=== PATIENT | female | born 1945 | race Caucasian/White ===

== ENCOUNTER 2019-08-15 20:09 | Inpatient (IN) | payer MEDICARE ==
[~2019-08-15] VITALS: Ht 157.5 cm; Wt 63.0 kg
--- NOTE | 2019-08-15 20:24 | NUR ---
PATIENT IN BED A & O X4. FALL PRECAUTION INITIATED.
--- NOTE | 2019-08-15 20:27 | NUR ---
SR RISK MANAGEMENT CONSULTANT WAS CALLED NO AVAILABLE 1:1 SITTER AT THIS TIME. OK TO USE SECURITY
--- NOTE | 2019-08-15 20:37 | NUR ---
REJI SENIOR PLANNER 1:1 AT BEDSIDE FOR PATIENT SAFETY. PATIENT IN BED NO S/S ANY DISTRESS. WILL CONTINUE TO MONITOR.
[2019-08-15 20:48] LABS: CARBON DIOXIDE 28 mmol/L (21-32); CHLORIDE 101 mmol/L (98-107); CREATININE 1.3 mg/dL (0.6-1.3); GLUCOSE 105 mg/dL (74-106); POTASSIUM 3.8 mmol/L (3.5-5.1); UREA NITROGEN, BLOOD 29 mg/dL (7-18)
--- NOTE | 2019-08-15 20:48 | NUR ---
ALICIA ASSISTED LIVING MANAGER 1:1 SITTER AT BEDSIDE
[2019-08-15 20:49] LABS: ETHANOL < 3 MG/DL (0-0)
[2019-08-15] MEDS ORDERED: OMEP20TA20 PO (20:49)
[2019-08-15] MEDS ORDERED: PREG100C GT (20:49)
[2019-08-15] MEDS ORDERED: LISI10TA5 PO (20:49)
[2019-08-15] MEDS ORDERED: LEVO50TA PO (20:49)
[2019-08-15] MEDS ORDERED: PREG50CA PO (20:49)
--- NOTE | 2019-08-15 20:50 | NUR ---
PATIENT IN BED. NOT IN ANY DISTRESS.
[2019-08-15 20:54] LABS: ACETAMINOPHEN < 2.0 ug/mL (10-30); ALANINE AMINOTRANSFERASE 23 U/L (14-59); ALKALINE PHOSPHATASE 80 U/L (50-136); ASPARTATE AMINOTRANSFERASE 24 U/L (15-37); BILIRUBIN,DIRECT 0.1 mg/dL (0.0-0.2); BILIRUBIN,TOTAL 0.4 mg/dL (0.2-1.0); TOTAL PROTEIN, SERUM 7.4 g/dL (6.4-8.2)
--- NOTE | 2019-08-15 21:00 | NUR ---
PATIENT IS MEDICALLY CLEARED BY DR BRYAN.
--- NOTE | 2019-08-15 21:05 | NUR ---
PATIENT IN ROOM ON THE BED. NOT IN ANY DISTRESS.
--- NOTE | 2019-08-15 21:18 | NUR ---
Pt. admitted to [facility] , under care of Dr. LINDER Belongs List completed
[2019-08-15] MEDS ORDERED: MAGNESIUM HYDROXIDE 30 ML LIQUID UDC PO PRN (21:30)
[2019-08-15] MEDS ORDERED: BLOOD SUGAR DIAGNOSTIC 1 EACH STRIP VI ONE (21:30)
[2019-08-15 22:00] VITALS: BP 113/70
[2019-08-15] MEDS: TEMAZEPAM 7.5 MG CAPSULE PO PRN (23:00)
[2019-08-15] MEDS: ACETAMINOPHEN 325 MG TABLET PO PRN (23:40)
--- NOTE | 2019-08-16 01:55 | NUR ---
PATIENT RECEIVED VIA WHEEL CHAIR FROM ER AT 2114. PATIENT ALERT/ORIENTED X3 FLAT AFFECT, UNKEMPT, AGITATED, GUARDED, AND SUSPICIOUS. PATIENT DENIES SI WITH PLAN, HOWEVER SHE STATED HER DEPRESSION IS UNPREDICATBLE AND FEELS DEPRESSED FIVE DAYS OUT OF THE MONTH. PATIENT LOST HER SON 8 YEARS AGO AND THAT WAS THE MAIN CAUSE OF HER DEPRESSION. PATIENT REFUSED TO SIGN ADMISSION PAPER WORK " I AM JUST SO TIRED." PATIENT WAS ORIENTED TO ROOM AND CHANGED INTO HOSPITAL GOWN, SKIN INTACT. Q 15 MIN SAFETY CHECK, SAFE ENVIRONMENT PROVIDED, FREQUENT ROUNDING, AND CLUTTER FREE ENVIRONMENT. BED IN LOWEST POSITION, BED LOCKED, AND BED ALARM ON WHILE IN BED.
[2019-08-16 07:30] VITALS: BP 113/75
[2019-08-16 08:32] LABS: BILIRUBIN,TOTAL 0.4 mg/dL (0.2-1.0); POTASSIUM 4.3 mmol/L (3.5-5.1); TOTAL PROTEIN, SERUM 7.3 g/dL (6.4-8.2)
--- NOTE | 2019-08-16 11:10 | NUR ---
Social Work Family Contact: machine lay out worker spoke with patient's daughter Mauricio Mae ([phone]) who stated that she is the DPOA and will send this functional tester typewriters the documentations. Per Mauricio, she would want her mother back home upon discharge.
--- NOTE | 2019-08-16 11:10 | NUR ---
Social Work Initial Discharge Plan: Patient currently resides at [id number] [place] [id number]; ([phone]). Per patient, she would want to return back home. Per patient's daughter BISHNU Mae ([phone]) who stated that she wnats patient back home. migratory worker will work with the patient and the MD regarding appropriate discharge planning. migratory worker will form a safe and proper discharge.
--- NOTE | 2019-08-16 11:18 | NUR ---
Social Work Family Contact: Social Work Family Contact: barrow worker spoke with patient's daughter Mauricio Mae ([phone]) sent DPOA documents and this quality analyst/technical writer placed in patient's chart.
[2019-08-16] MEDS: ASPIRIN 81 MG TAB.CHEW PO SCH (12:38)
[2019-08-16] MEDS: PREGABALIN 100 MG CAPSULE PO SCH (12:38)
[2019-08-16] MEDS: LEVOTHYROXINE SODIUM 50 MCG TABLET PO SCH (12:38)
[2019-08-16] MEDS: METHYLPHENIDATE HCL 5 MG TABLET PO SCH (12:38)
--- NOTE | 2019-08-16 15:24 | NUR ---
Social Work Individual Therapy: graphic pre press trades worker met with patient for brief counseling. graphic pre press trades worker assessed for patient's level of suicidality. Patient denies SI. Patient reported that she has been battling with depression because her son 8 years ago and she has not accepted it yet. Patient reports that she has a strong support system and that her daughter Mauricio has been involved in her care who is the DPOA. graphic pre press trades worker actively listened and provided support for the patient. graphic pre press trades worker encouraged patient to contact either family, hotline, or a professional if patient were to have suicidal thoughts. This creative writer also encouraged patient to alert either this creative writer or the nursing staff.
[2019-08-16 16:00] VITALS: BP 151/89
--- NOTE | 2019-08-16 17:30 | NUR ---
Gps/Pipe Stem Aligner-Anxious , kept asking and checking time for her medications, reviewed scheduled medications as well as her prns. She also complained that she had diarrhrea couple of times today, called [facility], order received, patient was informed.
[2019-08-16] MEDS: LOPERAMIDE HCL 2 MG CAPSULE PO PRN (18:24)
[2019-08-16 20:00] VITALS: BP 141/77
[2019-08-16] MEDS: LISINOPRIL 10 MG TABLET PO SCH (20:32)
[2019-08-16] MEDS: MIRTAZAPINE 15 MG TABLET PO SCH (20:32)
[2019-08-16] MEDS: ATORVASTATIN 20 MG TABLET PO SCH (20:32)
[2019-08-16] MEDS: MAG HYDROX/AL HYDROX/SIMETH 30 ML LIQUID UDC PO PRN (20:52)
[2019-08-16] MEDS: CLONAZEPAM 0.5 MG TABLET PO PRN (20:59)
[2019-08-17] MEDS: PREGABALIN 100 MG CAPSULE PO SCH ×2 (00:01→13:14)
[2019-08-17] MEDS: PANTOPRAZOLE SODIUM 40 MG TABLET.DR PO SCH (06:02)
[2019-08-17] MEDS: LEVOTHYROXINE SODIUM 50 MCG TABLET PO SCH (06:02)
[2019-08-17 07:30] VITALS: BP 136/60
[2019-08-17] MEDS: METHYLPHENIDATE HCL 5 MG TABLET PO SCH (09:20)
[2019-08-17] MEDS: ASPIRIN 81 MG TAB.CHEW PO SCH (09:20)
[2019-08-17] MEDS: ACETAMINOPHEN 325 MG TABLET PO PRN ×2 (10:40→14:46)
[2019-08-17] MEDS: LOPERAMIDE HCL 2 MG CAPSULE PO PRN ×2 (10:46→14:46)
--- NOTE | 2019-08-17 15:25 | NUR ---
Social Work Individual Therapy: wind turbine sheet metal worker met with patient for brief counseling. wind turbine sheet metal worker assessed for patient's level of suicidality. Patient denies SI. Patient expressed to this senior medical writer that she has anxiety and when she develops symptoms of anxiety her stomach becomes upset. This senior medical writer encouraged patient to share her thoughts and feelings to help with her negative thoughts. This senior medical writer actively listened and provided emotional support. This senior medical writer helped patient gain positive thoughts. wind turbine sheet metal worker encouraged patient to interact with peers and to join group.
[2019-08-17 15:45] VITALS: BP 106/73
[2019-08-17 20:00] VITALS: BP 114/70
[2019-08-17] MEDS: MIRTAZAPINE 15 MG TABLET PO SCH (20:35)
[2019-08-17] MEDS: ATORVASTATIN 20 MG TABLET PO SCH (20:35)
[2019-08-17] MEDS: LISINOPRIL 10 MG TABLET PO SCH (20:35)
--- NOTE | 2019-08-17 21:10 | NUR ---
Patient received in bed awake, patient alert/oriented x3 patient complaint with medication. patient denies SI will continue to monitor changes in behavior. No aggressive or combative behavior noted, will continue to monitor. Safe environment provided, frequent rounding, and clutter free environment. Bed in lowest position, bed locked, and bed alarm on while in bed.
[2019-08-17] MEDS: TEMAZEPAM 7.5 MG CAPSULE PO PRN (21:27)
[2019-08-18] MEDS: PREGABALIN 100 MG CAPSULE PO SCH ×2 (00:17→11:32)
[2019-08-18] MEDS: PANTOPRAZOLE SODIUM 40 MG TABLET.DR PO SCH (06:19)
[2019-08-18] MEDS: LEVOTHYROXINE SODIUM 50 MCG TABLET PO SCH (06:19)
[2019-08-18 07:30] VITALS: BP 126/69
[2019-08-18] MEDS: ASPIRIN 81 MG TAB.CHEW PO SCH (08:15)
[2019-08-18] MEDS: METHYLPHENIDATE HCL 5 MG TABLET PO SCH (08:15)
[2019-08-18] MEDS ORDERED: TEMAZEPAM 7.5 MG CAPSULE PO PRN (11:30)
[2019-08-18] MEDS ORDERED: TEMAZEPAM 15 MG CAPSULE PO PRN (11:45)
[2019-08-18] MEDS: LOPERAMIDE HCL 2 MG CAPSULE PO PRN (14:03)
[2019-08-18 16:00] VITALS: BP 106/63
[2019-08-18] MEDS: ACETAMINOPHEN 325 MG TABLET PO PRN (16:09)
--- NOTE | 2019-08-18 17:42 | NUR ---
Gps/Supervisor Forming Department- Ambulates around with front wheel walker, complained of tingling sensations to her feet. Stayed in her room during her meals, encouraged attending her group therapy. Making her needs known, interacting with her roommate
[2019-08-18] MEDS: ATORVASTATIN 20 MG TABLET PO SCH (20:35)
[2019-08-18] MEDS: MIRTAZAPINE 15 MG TABLET PO SCH (20:35)
[2019-08-18] MEDS: LISINOPRIL 10 MG TABLET PO SCH (20:36)
[2019-08-18 21:31] VITALS: BP 120/70
--- NOTE | 2019-08-19 00:15 | NUR ---
RECEIVED PATIENT IN BED AWAKE. APPEARS PLEASANT BUT GUARDED. DENIES SI/HI BUT REQUESTED FOR SLEEP AID SAYING 'IF I CAN SLEEP, MY WORRIES CAN WAIT'. SHE WAS GIVEN TAB RESTORIL 7.5MG AT 20:45 WITH GOOD EFFECT.SHE IS MEDICATION COMPLIANT. SAFE ENVIRONMENT PROVIDED.WILL CONTINUE TO MONITOR .
[2019-08-19] MEDS: PREGABALIN 100 MG CAPSULE PO SCH ×2 (00:26→12:18)
[2019-08-19] MEDS: ACETAMINOPHEN 325 MG TABLET PO PRN ×2 (02:14→10:28)
[2019-08-19] MEDS: CLONAZEPAM 0.5 MG TABLET PO PRN (02:14)
[2019-08-19] MEDS: LEVOTHYROXINE SODIUM 50 MCG TABLET PO SCH (06:27)
[2019-08-19] MEDS: PANTOPRAZOLE SODIUM 40 MG TABLET.DR PO SCH (06:27)
[2019-08-19 07:30] VITALS: BP 120/80
[2019-08-19] MEDS: ASPIRIN 81 MG TAB.CHEW PO SCH (08:46)
[2019-08-19] MEDS ORDERED: METHYLPHENIDATE HCL 5 MG TABLET PO SCH (09:00)
[2019-08-19] MEDS: PSEUDOEPHEDRINE HCL 30 MG TABLET PO PRN (14:35)
[2019-08-19] MEDS: IBUPROFEN 600 MG TABLET PO PRN (14:35)
--- NOTE | 2019-08-19 15:21 | NUR ---
Gps/General Internal Medicine Doctor- Complained of constipation this time , claimed she ate too much no bm yet today , stomach discomfort., requesting dulcolax supp. informed no order, req. to page Doctor. Offered MOM refused, that will gives her diarrhrea per pt. . Adequate fluid intake .
[2019-08-19] MEDS ORDERED: BISACODYL 10 MG SUPP.RECT RC PRN (15:30)
[2019-08-19 16:00] VITALS: BP 151/84
[2019-08-19 20:00] VITALS: BP 133/76
[2019-08-19] MEDS: ATORVASTATIN 20 MG TABLET PO SCH (20:38)
[2019-08-19] MEDS: MIRTAZAPINE 15 MG TABLET PO SCH (20:39)
[2019-08-19] MEDS: LISINOPRIL 10 MG TABLET PO SCH (20:40)
[2019-08-19] MEDS: ZOLPIDEM 5 MG TABLET PO PRN (21:02)
[2019-08-20] MEDS: PREGABALIN 100 MG CAPSULE PO SCH ×2 (00:02→13:27)
--- NOTE | 2019-08-20 00:02 | NUR ---
RECEIVED PATIENT IN BED AWAKE. APPEARS PLEASANT BUT GUARDED. DENIES SI/HI BUT REQUESTED FOR AMBIEN TO AID HER SLEEP. SAME GIVEN WITH GOOD EFFECT. SAFE ENVIRONMENT PROVIDED.WILL CONTINUE TO MONITOR .
[2019-08-20] MEDS: LEVOTHYROXINE SODIUM 50 MCG TABLET PO SCH (06:29)
[2019-08-20] MEDS: PANTOPRAZOLE SODIUM 40 MG TABLET.DR PO SCH (06:29)
--- NOTE | 2019-08-20 06:35 | NUR ---
SLEPT FOR APPROX. 07;15 HOURS.
[2019-08-20] MEDS: ASPIRIN 81 MG TAB.CHEW PO SCH (09:07)
[2019-08-20] MEDS: PSEUDOEPHEDRINE HCL 30 MG TABLET PO PRN (09:07)
[2019-08-20] MEDS: IBUPROFEN 600 MG TABLET PO PRN ×2 (09:14→19:07)
[2019-08-20] MEDS: METHYLPHENIDATE HCL 5 MG TABLET PO SCH (09:31)
[2019-08-20] MEDS: ACETAMINOPHEN 325 MG TABLET PO PRN (12:55)
--- NOTE | 2019-08-20 15:16 | NUR ---
Social Work Family Contact: This caption writer returned patient's daughter Mauricio ([phone]) voicemail, but was unavailable.
[2019-08-20 15:38] VITALS: BP_SYST 120; BP_SYST 140; BP_DIAS 63; BP_DIAS 66
--- NOTE | 2019-08-20 15:59 | NUR ---
Social Work Coordination of Care: paint factory worker faxed patient's H & P psychiatric notes and progress notes to three home health services in her community. [facility] ([phone]) ([phone]) and will review patient's clinicals. [facility] ([phone]) and intake will review patient's clinicals. [facility] ([phone]) ([phone]) and intake will review patient's clinicals.
--- NOTE | 2019-08-20 16:13 | NUR ---
Social Work Coordination of Care: [facility] ([phone]) ([phone]) contacted this chief writer by Gloria who mentioned that they will accept patient upon discharge.
--- NOTE | 2019-08-20 16:23 | NUR ---
Social Work Family Contact: spring salvage worker spoke with patient's daughter BISHNU Martínez ([phone]) and discussed patient's treatment plan. This writer editor informed that this writer editor will set home health services upon discharge.
[2019-08-20] MEDS: LOPERAMIDE HCL 2 MG CAPSULE PO PRN (17:13)
--- NOTE | 2019-08-20 17:36 | NUR ---
patient Ambulates around with front wheel walker, complained of pain of her feet. prn pain medication given.Stayed in her room during her meals, encouraged attending her group therapy. Making her needs known, interacting with her roommate
[2019-08-20 20:00] VITALS: BP 156/78
[2019-08-20] MEDS: MIRTAZAPINE 15 MG TABLET PO SCH (20:15)
[2019-08-20] MEDS: LISINOPRIL 10 MG TABLET PO SCH (20:22)
[2019-08-20] MEDS: ATORVASTATIN 20 MG TABLET PO SCH (20:23)
[2019-08-20] MEDS: ZOLPIDEM 5 MG TABLET PO PRN (21:54)
[2019-08-21] MEDS: PREGABALIN 100 MG CAPSULE PO SCH ×4 (02:33→23:55)
[2019-08-21] MEDS: PANTOPRAZOLE SODIUM 40 MG TABLET.DR PO SCH (06:09)
[2019-08-21] MEDS: LEVOTHYROXINE SODIUM 50 MCG TABLET PO SCH (06:09)
[2019-08-21 07:30] VITALS: BP 129/79
[2019-08-21] MEDS: ASPIRIN 81 MG TAB.CHEW PO SCH (08:21)
[2019-08-21] MEDS: METHYLPHENIDATE HCL 5 MG TABLET PO SCH (08:21)
[2019-08-21] MEDS: IBUPROFEN 600 MG TABLET PO PRN ×2 (08:56→16:09)
[2019-08-21] MEDS: PSEUDOEPHEDRINE HCL 30 MG TABLET PO PRN (12:40)
--- NOTE | 2019-08-21 13:37 | NUR ---
Social Work Family Contact: auto body worker spoke with patient's daughter BISHNU Martínez ([phone]) stated that upon discharge she would need 24 hour notice to be able to cook pickled meat her mother.
--- NOTE | 2019-08-21 14:47 | NUR ---
Social Work Individual Therapy: scrap worker met with patient for brief counseling. scrap worker assessed for patient's level of suicidality. Patient denies SI. Patient presented to be anxious. Patient reported to this physician underwriter that she will need support at home and is "shy to ask her daughter". Patient reported if this physician underwriter can arrange home health services. This physician underwriter informed that she will have home health services set upon her discharge. Patient expressed a relief and was happy after having this conversation with this physician underwriter. Patient reported that she no longer feels sad or withdrawn and expressed that the medication has been helpful. scrap worker encouraged patient to interact with peers and to join group. This physician underwriter actively listened and provided support.
--- NOTE | 2019-08-21 17:04 | NUR ---
patient is A/O x4 Denies Si/HI ,prn pain medication given as ordered. VS stable, in no acute distress.
[2019-08-21 17:06] VITALS: BP 141/78
[2019-08-21] MEDS: LOPERAMIDE HCL 2 MG CAPSULE PO PRN (18:46)
--- NOTE | 2019-08-21 20:00 | NUR ---
Received patient resting in bed, easily to arouse. No distress noted. Complains of some stomach discomfort. Offered Mylanta and patient agreed to take. Patient says she does not want to take Lipitor, explained the risks/benefits but patient stated she takes something different at home for her cholesterol and she believes that the Lipitor may be causing her stomach pains. Denies any SI.
[2019-08-21 20:16] VITALS: BP 137/65
[2019-08-21] MEDS: LISINOPRIL 10 MG TABLET PO SCH (20:46)
[2019-08-21] MEDS: MIRTAZAPINE 15 MG TABLET PO SCH (20:46)
[2019-08-21] MEDS: ATORVASTATIN 20 MG TABLET PO SCH (20:49)
[2019-08-21] MEDS: MAG HYDROX/AL HYDROX/SIMETH 30 ML LIQUID UDC PO PRN (20:52)
[2019-08-21] MEDS: ZOLPIDEM 5 MG TABLET PO PRN (21:18)
[2019-08-21] MEDS: CLONAZEPAM 0.5 MG TABLET PO PRN (23:55)
[2019-08-22] MEDS: PANTOPRAZOLE SODIUM 40 MG TABLET.DR PO SCH (06:09)
[2019-08-22] MEDS: LEVOTHYROXINE SODIUM 50 MCG TABLET PO SCH (06:09)
[2019-08-22] MEDS: IBUPROFEN 600 MG TABLET PO PRN ×3 (06:41→19:00)
[2019-08-22 07:30] VITALS: BP 117/73
[2019-08-22] MEDS: ASPIRIN 81 MG TAB.CHEW PO SCH (08:44)
[2019-08-22] MEDS: METHYLPHENIDATE HCL 5 MG TABLET PO SCH (08:44)
[2019-08-22] MEDS: PSEUDOEPHEDRINE HCL 30 MG TABLET PO PRN (12:40)
[2019-08-22] MEDS: PREGABALIN 100 MG CAPSULE PO SCH (12:40)
--- NOTE | 2019-08-22 15:09 | NUR ---
Social Work Coordination of Care: This technical publications writer spoke with Gloria geiger from [facility] ([phone]) and stated that patient will be discharged 08/23. Per Gloria, she reported that a nurse will visit patient on 08/24.
[2019-08-22 16:05] VITALS: BP 119/64
[2019-08-22 20:33] VITALS: BP 125/68
[2019-08-22] MEDS: ATORVASTATIN 20 MG TABLET PO SCH (20:40)
[2019-08-22] MEDS: MIRTAZAPINE 15 MG TABLET PO SCH (20:40)
[2019-08-22] MEDS: LISINOPRIL 10 MG TABLET PO SCH (20:41)
[2019-08-22] MEDS: ZOLPIDEM 5 MG TABLET PO PRN (21:39)
[2019-08-23] MEDS: PREGABALIN 100 MG CAPSULE PO SCH ×2 (00:09→12:00)
[2019-08-23] MEDS: LEVOTHYROXINE SODIUM 50 MCG TABLET PO SCH (07:00)
[2019-08-23] MEDS: PANTOPRAZOLE SODIUM 40 MG TABLET.DR PO SCH (07:00)
[2019-08-23 07:56] VITALS: BP 138/89
[2019-08-23] MEDS: METHYLPHENIDATE HCL 5 MG TABLET PO SCH (08:25)
[2019-08-23] MEDS: IBUPROFEN 600 MG TABLET PO PRN ×2 (08:25→14:40)
[2019-08-23] MEDS: ASPIRIN 81 MG TAB.CHEW PO SCH (08:26)
[2019-08-23] MEDS: PSEUDOEPHEDRINE HCL 30 MG TABLET PO PRN (08:26)
--- NOTE | 2019-08-23 10:18 | NUR ---
Social Work Coordination of Care: This technical report writer contacted many outpatient psychiatrist offices to schedule an appointment but was unable to because they are not taking new patients. [facility] spoke with officer of the day ([phone]) who stated that they are not accepting new patient's. [facility] ([phone]) spoke with Gallo who stated that they do not have any psychiatrist in the area and that they usually tell patient's to follow-up with their primary doctor to be referred. [facility] ([phone]) spoke with Pancho who stated that they are not taking in any new patient's. [facility] ([phone]) spoke Lisa who stated they are not taking in any patient's at this moment.
--- NOTE | 2019-08-23 10:30 | NUR ---
Social Work Coordination of Care: Patient will follow up with Dr. Velazquez (senior production manager) at [facility] [address] [place] [address]; ([phone]) on August 28 at 10 oclock. Spoke with Luba at patients Dr. Resi office who stated that they will manage the patients psychotropic medications and refer the patient to an outpatient psychiatrist for continued follow-ups.
[2019-08-23] MEDS: MAG HYDROX/AL HYDROX/SIMETH 30 ML LIQUID UDC PO PRN ×2 (12:00→20:29)
[2019-08-23] MEDS: LOPERAMIDE HCL 2 MG CAPSULE PO PRN (12:05)
--- NOTE | 2019-08-23 13:24 | NUR ---
Social Work Firearms Report: Director Global Strategic Publisher Sales completed and submitted a [employer] firearms report for 5250 grave disability certification. A copy of report has been placed in patient chart.
[2019-08-23 15:43] VITALS: BP 149/74
--- NOTE | 2019-08-23 15:53 | NUR ---
Social Work Individual Therapy: calender worker helper met with patient for brief counseling. calender worker helper assessed for patient's level of suicidality. Patient denies SI. Patient presented to be guarded but pleasant. Patient expressed to this copywriter that she doesn't want to be a "burden on her daughter" and that she "likes being independent". Patient shared that she has a good relationship with her daughter, but it can be better. This copywriter encouraged patient to express her feelings/thoughts to her daughter. This copywriter provided support and actively listened.
--- NOTE | 2019-08-23 17:51 | NUR ---
Gps/Inside Sales Trainer-Had been in and out of her group activity, claimed she gets tired easily, and her shoulder bothers her she was doing simple yoga exercise in her room. . Patient noted multiple complaints, shoulder pain, upset stomach, had loose bm/pt., not observed, also complained about her allergy, requested sudafed, cap. verbalized relief. Ambulates around with front wheel walker . Encouraged to attend her group therapy. Patient claimed she is going to be discharge tomorrow , and her daughter will be coming to transport her home, encouraged to refer to SW. frye. planning,.
[2019-08-23 20:00] VITALS: BP 121/71
--- NOTE | 2019-08-23 20:00 | NUR ---
Patient received into care, ambulating in hallway with assistive device, interacting appropriately with peers and staff. Patient is alert/oriented 3 and has no complaints of pain or discomfort at this time. All safety and fall precaution measures are in place. Will continue to monitor and assess.
[2019-08-23] MEDS: ATORVASTATIN 20 MG TABLET PO SCH (20:28)
[2019-08-23] MEDS: MIRTAZAPINE 15 MG TABLET PO SCH (20:28)
[2019-08-23] MEDS: LISINOPRIL 10 MG TABLET PO SCH (20:29)
[2019-08-23] MEDS: ZOLPIDEM 5 MG TABLET PO PRN (20:43)
[2019-08-24] MEDS: PREGABALIN 100 MG CAPSULE PO SCH (00:04)
[2019-08-24] MEDS: CLONAZEPAM 0.5 MG TABLET PO PRN (02:51)
[2019-08-24] MEDS: PANTOPRAZOLE SODIUM 40 MG TABLET.DR PO SCH (06:12)
[2019-08-24] MEDS: LEVOTHYROXINE SODIUM 50 MCG TABLET PO SCH (06:12)
--- NOTE | 2019-08-24 06:24 | NUR ---
Patient slept intermittently this shift with all nursing needs addressed promptly. Patient was complaint with all aspects of care and is warm, dry, and comfortable. All safety and fall precaution measures remain in place.
[2019-08-24 07:30] VITALS: BP 130/68
[2019-08-24] MEDS: METHYLPHENIDATE HCL 5 MG TABLET PO SCH (08:02)
[2019-08-24] MEDS: ASPIRIN 81 MG TAB.CHEW PO SCH (08:02)
[2019-08-24] MEDS: PSEUDOEPHEDRINE HCL 30 MG TABLET PO PRN (08:07)
[2019-08-24] MEDS: IBUPROFEN 600 MG TABLET PO PRN (08:07)
--- NOTE | 2019-08-24 08:38 | NUR ---
Social Work Discharge Note: Patient will be discharged home to [id number], [place] [address]; ([phone]). Patients daughter BISHNU Martínez ([phone]) will picking crew supervisor patient at 9:30AM. Patients daughter is aware and agreeable to patients discharge. Upon discharge, patient appear to be calm, cooperative and happy to be going home. Patient denies suicidal and homicidal ideation. Patient is alert and oriented x3-4, is aware and agreeable on discharge and wants to go back home. Patient will follow up with Dr. Velazquez (chief of staff doctor) at [facility] [address] [facility] [address] [place] [address]; ([phone]) on August 28 at 10 oclock. Spoke with Luba at patients Dr. Reis office who stated that they will manage the patients psychotropic medications and refer the patient to an outpatient psychiatrist for continued follow-ups. Spoke with Gloria geiger from ([phone]) and stated that patient will be discharged 08/23. Per Gloria, she reported that a nurse will visit patient on 08/24. Patient presented with euthymic mood and congruent affect.
--- NOTE | 2019-08-24 09:55 | NUR ---
dc orders received noted and carried out.dc instruction and education given to the pt and her daughter ,pt verbalized understanding all the instruction ,pt said she will follow up with her dr ,pt left the facility via private car in stable condition
== END 2019-08-24 09:45 | disposition home health service (06) | DRG 885 ==
LOC: ER 20:13 → GPS 21:08
PROVIDERS: ADMIT Psychiatry & Neurology Psychiatry; ATTEND Nurse Practitioner Acute Care
DX: F33.2 Major depressive disorder, recurrent severe without psychotic features (principal); N17.0 Acute kidney failure with tubular necrosis; F23 Brief psychotic disorder; G62.9 Polyneuropathy, unspecified; G89.29 Other chronic pain; E03.9 Hypothyroidism, unspecified; Z95.0 Presence of cardiac pacemaker; F10.21 Alcohol dependence, in remission; E78.5 Hyperlipidemia, unspecified; I10 Essential (primary) hypertension; R73.03 Prediabetes; R79.89 Other specified abnormal findings of blood chemistry
CPT/HCPCS: 36415; 71045; 80329; 84443; 93005; A4663; G0480; G0480-TC